=== PATIENT | female | born 1955 | race Two or more races ===

== ENCOUNTER → 2024-09-23 15:57 | Outpatient (REF) | payer MEDICARE, OTHER, SELFPAY | LOC: PAVMRI 15:57 | PROVIDERS: ATTENDING PHYSICIAN Psychiatry & Neurology Neurology | DX: G43.E09 Chronic migraine with aura, not intractable, without status migrainosus (principal); I72.9 Aneurysm of unspecified site; R42 Dizziness and giddiness | CPT/HCPCS: 70544; 70547; 70551 ==